=== PATIENT | female | born 1930 | race Caucasian/White ===

== ENCOUNTER → 2019-06-17 | Outpatient (CLI) | payer MEDICARE ==
[~2019-06-17] MED LIST: REGADENOSON 0.4 MG/5 ML DISP.SYRIN. IV ONE
--- NOTE | 2019-06-17 10:32 | PCVCIMAG ---
APPROVED REPORT Study performed: 06/17/2019 09:11:32 EXAM: Comprehensive 2D, Doppler, and color-flow Echocardiogram Patient Location: Echo lab Status: routine BSA: 1.45 HR: 88 bpmBP: 130/74 mmHg Rhythm: Pacemaker Other Information Study Quality: Adequate Indications Dyspnea Pacemaker Chest Pain 2D Dimensions IVSd: 15.91 (7-11mm) LVDd: 46.15 mm PWd: 10.79 (7-11mm)Ascending Ao: 35.96 (22-36mm) LVDs: 38.08 (25-40mm) Left Atrium: 49.98 (27-40mm) Aortic Root: 33.11 mm LV Single Plane 4CH: 28.46 % LV Single Plane 2CH: 29.33 % Biplane EF: 28.1 % Volumes Left Atrial Volume (Systole) Single Plane 4CH: 114.91 mLSingle Plane 2CH: 138.54 mL LA ESV Index: 89.00 mL/m2 Aortic Valve AoV Peak Joesph.: 1.62 m/s AO Peak Gr.: 10.53 mmHgLVOT Max P.98 mmHg LVOT Max V: 0.86 m/s Mitral Valve E/A Ratio: 0.8 MV Decel. Time: 227.84 ms MV E Max Joesph.: 0.79 m/s MV A Joesph.: 0.96 m/s IVRT: 128.03 ms Pulmonary Valve PV Peak Joesph.: 0.90 m/sPV Peak Gr.: 3.24 mmHg Pulmonary Vein P Vein S: 0.50 m/sP Vein A: 0.30 m/s P Vein D: 0.57 m/sP Vein A Dur.: 124.6 msec P Vein S/D Ratio: 0.88 Tricuspid Valve TR Peak Joesph.: 3.70 m/s TR Peak Gr.: 54.78 mmHg Left Ventricle The left ventricle is normal size. There is normal LV segmental wall motion. Moderate septal left ventricular hypertrophy. Left ventricular systolic function is severely decreased.worse inferiorly LVEF is 30%. Grade I - abnormal relaxation pattern. Right Ventricle The right ventricle is normal size. The right ventricular systolic function is normal. Pacemaker lead is present in the right ventricle. Atria Left atrium is severely dilated. Right atrium is severely dilated. Pacemaker lead is present in the right atrium. Aortic Valve The aortic valve is normal in structure. Mild aortic regurgitation. There is no aortic valvular stenosis. Mitral Valve The mitral valve is normal in structure. Moderate mitral regurgitation. No evidence of mitral valve stenosis. Tricuspid Valve The tricuspid valve is normal in structure. Moderate to severe tricuspid regurgitation with PAP of 62 mmHg. Pulmonic Valve The pulmonary valve is normal in structure. Mild pulmonic regurgitation. Great Vessels The aortic root is normal in size. IVC is normal in size and collapses >50% with inspiration. Pericardium There is no pericardial effusion. There is no pleural effusion. <Conclusion> The left ventricle is normal size. Moderate septal left ventricular hypertrophy. Left ventricular systolic function is severely decreased.worse inferiorly LVEF is 30%. Grade I - abnormal relaxation pattern. The right ventricle is normal size. Left atrium is severely dilated. Right atrium is severely dilated. Pacemaker lead is present in the right atrium. Pacemaker lead is present in the right ventricle. Mild aortic regurgitation. Moderate mitral regurgitation. Moderate to severe tricuspid regurgitation with PAP of 62 mmHg. The aortic root is normal in size. There is no pericardial effusion.
--- NOTE | 2019-06-18 17:06 | PCVCIMAG ---
APPROVED REPORT Imaging Protocol: Rest Tc-99m/Stress Tc-99m 1 day Study performed: 06/17/2019 10:10:05 Indication: CAD , Chest pain, Dyspnea Patient Location: Out-Patient Stress Nurse: Elodia Gordon RN, Maggie Rollins RN [place] Tech:Pearl KARLI HubbardMT Ht: 5 ft 0 in Wt: 110 lbs BSA: 1.45 m2 HR: 83 bpm BP: 172/74 mmHg BMI: 21.4 Rhythm: AV paced Medical History Medical History: Hyperlipidemia, HTN, PVD, Diabetes, ICD Medications: Metformin, Keppra, Toprol XL, NTG, ASA, Lasix, Crestor, Aldactone Allergies: Cilostazol, Codeine, Tetracycline Cardiac Risk Factors: Age Previous Cardiac Procedures: PCI Pretest Chest Pain Characteristics: No chest pain Exercise History: Sedentary Resting Data Rest SPECT myocardial perfusion imaging was performed in supine position 45 minutes following the intravenous injection of 9.8 mCi of Tc-99m Sestamibi. Time of rest injection: 1000 Date: 06/17/2019 Administration Route: IV Administration Site: Right Arm Pharmacologic Stress Pharmacologic stress test was performed by injecting Regadenoson 0.4 mg IV push over 10-15 seconds immediately followed by the intravenous injection of 33.7 mCi of Tc-99m Sestamibi. Time of stress injection: 1130 Date: 06/17/2019 Administration Route: IV Administration Site: Right Arm Gated Stress SPECT was performed 45 minutes after stress injection. The images were gated to evaluate regional wall motion and calculate left ventricular ejection fraction. Stress Test Details Stress Test: Pharmacologic stress testing performed using 0.4 mg of regadenoson per 5 mL given IV over 10 seconds. Reason for pharmacologic stress test: physical limitation, wheel chair bound. HRMax Heart Rate (APMHR): 133 bpm Resting HR: 83 bpmTarget HR (85% APMHR): 113 bpm Max HR Achieved: 97 bpm % of APMHR: 72 Recovery HR: 94 bpm BP Resting BP: 172/74 mmHg Max BP: 168/77 mmHg Recovery BP: 151/66 mmHg ECG Resting ECG: AV paced Stress ECG: AV paced Arrhythmia: None Recovery ECG: AV paced Clinical Reason for Termination: Completed protocol Stress Symptoms: Abdominal discomfort, Chest tightness, Dyspnea, Dizziness Symptoms resolved with caffeine. Stress ECG Conclusion non diagnostic paced Study Quality Study: Good Study Data Post stress, the left ventricular ejection was 20%.. SSS: 18 SRS: 6 SDS: 12 TID = 0.91. Perfusion Medium sized area of mild reversible ischemia involving the inferoseptal left ventricle consistent with a right coronary artery distribution. Wall Motion Global hypokinesis. Nuclear Conclusion Medium sized area of mild reversible ischemia involving the inferoseptal left ventricle consistent with a right coronary artery distribution. Post stress, the left ventricular ejection was 20%. No prior study available for comparison. Interpreted by: Luke Barney MD Electronically Approved: 06/17/2019 18:03:46 <Conclusion> non diagnostic paced
== END | disposition home or self-care (01) ==
LOC: PCVCIMAG 09:14
PROVIDERS: ATTEND Internal Medicine Cardiovascular Disease
DX: I08.8 Other rheumatic multiple valve diseases (principal); Z88.6 Allergy status to analgesic agent
CPT/HCPCS: 78452; 93017; 93306; A9500; J2785